=== PATIENT | male | born 1965 | race Caucasian/White ===

== ENCOUNTER 2023-09-02 09:56 | Emergency (ER) | payer BC ==
[2023-09-02] MEDS ORDERED: EPINEPHrine 1 MG/10 ML SYR IV ONE (09:57)
[2023-09-02 10:10] LABS: Absolute Lymphocytes (CBC) 3.6 K/uL (0.7-4.9); Hematocrit 48.6 % (39.6-49.0); Lymphocytes % 44.5 % (15.3-44.8); MCV 92.9 fL (80-100); Platelets 152 thou/uL (152-406); RBC Red Blood Cell Count 5.24 M/uL (4.33-5.43)
--- NOTE | 2023-09-02 10:49 | EDPHYS ---
Physician Documentation [facility] [place] Name: Mesfin Saeed Age: 58 yrs Sex: Male : 1965 Arrival Date: 09/02/2023 Time: 09:56 Bed 2 Private MD: ED Physician Endy Garcia HPI: 09/02 10:06 This 58 yrs old Male presents to ER via Unassigned with complaints of CPR. rn 10:06 Preceding the arrest, the patient collapsed. The arrest occurred at home. Pre-hospital rn course: The arrest was witnessed Bystanders at the scene performed CPR. EMS care prior to arrival: initiation of ACLS, peripheral IV, ACLS has been in progress for 25 minutes. ACLS details: Initial rhythm was V-fib. The presenting rhythm is PEA. Airway: oral intubation, Medications given by EMS prior to arrival - Epinephrine IV x 3 doses, Defibrillated X 2, Response to therapy: continued arrest. It is unknown whether or not the patient has had similar symptoms in the past. EMS reports unresponsive and collapse while seated in couch, was eating at the time, concern for possible choking episode. Patient was pulseless by the time EMS arrived, initial rhythm was possible V-fib, shocked twice, PEA since then. No ROSC. Epi given multiple times. IO placed and intubated prior to arrival. Good end-tidal CO2 and tube confirmed by EMS. There was no obstruction of trachea that EMS noted.. - Family history:: not pertinent. - Hospitalizations: : No recent hospitalization is reported. ROS: 10:06 Unable to obtain ROS due to patient is on ventilator, rn Exam: 10:06 Constitutional: Obese male, cyanotic, GCS 3 intubated Head/Face: Normocephalic, rn atraumatic. Eyes: Pupils 6 mm, unreactive ENT: Oral airway in place, no bleeding Cardiovascular: No spontaneous cardiac activity noted. Cyanotic from torso up. Cool extremities Respiratory: Coarse bilateral breath sounds with bagging. No spontaneous breaths Abdomen/GI: Soft, no distention Neuro: GCS 3, intubated Vital Signs: 09:50 BP 123 / 34; Pulse 105; ld1 09:56 Temp 97(TE); Height 6 ft. 0 in. ; ld1 10:04 Pulse 0; ld1 10:24 Weight 195 kg; ld1 Procedures: 10:09 CPR: See CPR flow sheet. Initial patient assessment: unresponsive, cyanotic, pulses rn present w/ compressions, The presenting cardiac rhythm is PEA. the patient was intubated prior to arrival, Compressions: began prior to arrival. despite ED evaluation and treatment, the patient . Family notified. CPR was stopped at 10:04. MDM: 10:06 Patient medically screened. rn 10:46 Differential diagnosis: arrythmia, cardiac arrest, respiratory arrest, asphyxiation, rn Choking episode. Data reviewed: vital signs, nurses notes. Response to treatment: There is no appreciated change of the patient's symptoms at this time. 10:46 ED course: I personally spent 35 minutes engaged in work directly related to the rn individual patient's care. This does not include any time spent performing procedures. The patient has been deemed critically ill because of CPR in progress, requiring ACLS protocols, ET tube verification, bedside ultrasound and echo performed, attempted chart review, and discussion with family. 09/02 09:57 Order name: CBC with Diff [facility] 09/02 10:15 Order name: Glucose, Ancillary Testing EDIA 09/02 11:17 Order name: Manual Differential EDIA 09/02 09:57 Order name: EKG; Complete Time: 09:58 ll1 09/02 09:57 Order name: Cardiac monitoring; Complete Time: 10:25 ll1 09/02 09:57 Order name: IV Saline Lock; Complete Time: 10:25 ll1 09/02 09:57 Order name: Labs collected and sent; Complete Time: 10:25 ll1 09/02 09:57 Order name: O2 Per Protocol; Complete Time: 10:25 ll1 09/02 09:57 Order name: O2 Sat Monitoring; Complete Time: 10:25 ll1 Administered Medications: 09:54 Drug: EPINEPHrine 0.1mg/mL 1:10,000 1 mg IVP once Route: IVP; Site: right antecubital; ld1 09:56 Drug: EPINEPHrine 0.1mg/mL 1:10,000 1 mg IVP once Route: IVP; Site: right antecubital; ld1 09:58 Drug: EPINEPHrine 0.1mg/mL 1:10,000 1 mg IVP once Route: IVP; Site: right antecubital; ld1 10:02 Drug: EPINEPHrine 0.1mg/mL 1:10,000 1 mg IVP once Route: IVP; Site: right antecubital; ld1 Disposition: 10:46 Critical Care:. rn 10:46 . rn Disposition Summary: 09/02/23 10:48 Patient Notes: Location: Night Order Selector rn Pronouncing Physician: Endy Garcia rn Time of : 10:04 09/02/2023 rn Diagnosis - Cardiac arrest, cause unspecified rn field time excluding procedures: 10:46 Critical care time: Bedside Care: 25 minutes, Family Intervention: 10 minutes. Total rn time: 35 minutes Signatures: Dispatcher [employer] EDMS Endy Garcia MD MD rn Lewis, Lynsay RN RN ll1 Merline Mcclain RN RN ld1 Corrections: (The following items were deleted from the chart) 10:09 09:58 Chest Single View+RAD.RAD.[email or web address] ordered. [facility] EDIA 10:45 09:57 EKG - Nurse/Tech ordered. ll1 ld1
--- NOTE | 2023-09-02 10:49 | ER ---
Nurse's Notes [facility] Name: Mesfin Saeed Age: 58 yrs Sex: Male : 1965 Arrival Date: 09/02/2023 Time: 09:56 Bed 2 Private MD: Diagnosis: Cardiac arrest, cause unspecified Presentation: 09/02 09:50 Chief complaint: EMS states: toned out to patient home for choking. Upon arrival to ER ld1 pt was non responsive and intubated. CPR continued. 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 09:50 Method Of Arrival: EMS: [facility] ld1 09:50 Coronavirus screen: At this time, the client does not indicate any symptoms associated ld1 with coronavirus-19. Ebola Screen: No symptoms or risks identified at this time. 09:50 Care prior to arrival: Oral intubation, CPR manually performed by EMS and is still in ld1 progress Medication(s) given: 3 EPI. 09:50 Note EMS responded to pt home for choking. Upon arrival to pt home EMS intubated pt and ld1 administered 3 EPI COMPOUNDER HELPER to ER. CPR en route to ER and continued upon arrival to ER>. Care prior to arrival: IV initiated. IO to right lower extremity. Activity prior to arrival: unresponsive. 09:50 Compressions began prior to arrival. ld1 10:04 Initial Sepsis Screen: Does the patient meet any 2 criteria? No. Patient's initial ld1 sepsis screen is negative. Does the patient have a suspected source of infection? No. Patient's initial sepsis screen is negative. Risk Assessment: Do you want to hurt yourself or someone else? Patient reports no desire to harm self or others. Onset of symptoms was September 02, 2023. 10:04 Acuity: DEVON 1 ld1 Triage Assessment: 09:50 General: Appears distressed, Behavior is unresponsive. ld1 09:50 Pain: Unable to use pain scale. Patient is unresponsive. EENT: No signs and/or symptoms ld1 were reported regarding the EENT system. Neuro: [place] Agitation-Sedation Scale (RASS): -5 Unarousable. Cardiovascular: Respiratory: Airway via oral intubation. GI: Abdomen is round obese. : No deficits noted. Derm: No deficits noted. Musculoskeletal: No deficits noted. - Family history:: not pertinent. - Hospitalizations: : No recent hospitalization is reported. Screenin:50 [facility] ED Fall Risk Assessment (Adult) History of falling in the last 3 months, ld1 including since admission No falls in past 3 months (0 pts). Abuse screen: Denies threats or abuse. Denies injuries from another. Nutritional screening: No deficits noted. Tuberculosis screening: No symptoms or risk factors identified. Assessment: 09:50 Reassessment: See triage assessment. ld1 09:50 CPR assessment: unresponsive, intubated, mechanical ventilation, cyanotic. Cardiac ld1 rhythm is PEA. 09:55 CPR assessment: unresponsive, intubated, cyanotic. ld1 09:55 Cardiac rhythm is PEA. ld1 09:58 CPR assessment: unresponsive, intubated, mechanical ventilation, cyanotic. Cardiac ld1 rhythm is PEA. 10:01 CPR assessment: unresponsive, intubated, mechanical ventilation, cyanotic. Cardiac ld1 rhythm is PEA. 10:02 Reassessment: BGL 221. ld1 10:04 CPR assessment: unresponsive, intubated, mechanical ventilation, cyanotic. Cardiac ld1 rhythm is PEA. 10:04 General: TOD at 1004. Called by Dr. Garcia.. ld1 12:58 Reassessment: Mortuary transport left with patient at this time. ld1 Vital Signs: 09:50 BP 123 / 34; Pulse 105; ld1 09:56 Temp 97(TE); Height 6 ft. 0 in. ; ld1 10:04 Pulse 0; ld1 10:24 Weight 195 kg; ld1 ED Course: 09:50 Arm band placed on right wrist. ld1 09:50 Patient has correct armband on for positive identification. Bed in low position. Side ld1 rails up X2. hospital monitor on. Pulse ox on. NIBP on. Door closed. Noise minimized. 09:54 No provider procedures requiring assistance completed. Inserted saline lock: 18 gauge ld1 in right antecubital area, using aseptic technique. Blood collected. 09:56 Patient arrived in ED. ll1 10:00 Endy Garcia MD is Attending Physician. ec2 10:08 Triage completed. ld1 10:25 Merline Mcclain RN is Primary Nurse. ld1 10:48 Endy Garcia MD is Pronouncing Provider. rn Administered Medications: 09:54 Drug: EPINEPHrine 0.1mg/mL 1:10,000 1 mg IVP once Route: IVP; Site: right antecubital; ld1 09:56 Drug: EPINEPHrine 0.1mg/mL 1:10,000 1 mg IVP once Route: IVP; Site: right antecubital; ld1 09:58 Drug: EPINEPHrine 0.1mg/mL 1:10,000 1 mg IVP once Route: IVP; Site: right antecubital; ld1 10:02 Drug: EPINEPHrine 0.1mg/mL 1:10,000 1 mg IVP once Route: IVP; Site: right antecubital; ld1 Medication: 09:50 VIS not applicable for this client. ld1 Outcome: 12:59 Patient : ld1 12:59 Condition: 12:59 Patient left the ED. ld1 Signatures: Endy Garcia MD MD rn Lewis, Lynsay, RN RN ll1 Merline Mcclain RN RN ld1 Davidson Sears MD MD ec2 Corrections: (The following items were deleted from the chart) 10:16 09:55 CPR assessment: unresponsive, intubated, cyanotic, ld1 ld1 10:25 09:56 Temp 97F Temporal; 142.88 kg; Height 6 ft. 0 in.; BMI: 42.7; ld1 ld1
[2023-09-02 11:17] LABS: Blood Morphology Comment NOT SEEN (NOT SEEN); Platelet Estimate ADEQ
[2023-09-02 14:02] VITALS: TEMP 97
== END 2023-09-02 10:04 | disposition expired ==
LOC: ER 09:56
DX: I46.9 Cardiac arrest, cause unspecified (principal)
CPT/HCPCS: 85025; 82947; 96374; 92950 ×2; 99291; J0171